=== PATIENT | male | born 1945 | race Caucasian/White ===

== ENCOUNTER → 2019-07-22 10:17 | Outpatient (CLI) | payer MEDICARE, SELFPAY ==
[2019-07-22 11:14] LABS: Cholesterol 196 mg/dL (140-199); HDL Cholesterol 52 mg/dL (40-60); LDL Cholesterol Calculated 123 mg/dL (<100); Triglycerides 104 mg/dL (35-150)
[2019-07-22 11:30] LABS: Vitamin D 25 Hydroxy (D3) 44.2 ng/mL (30.0-100.0)
== END ==
PROVIDERS: PCP Student in an Organized Health Care Education/Training Program; Visit Provider Student in an Organized Health Care Education/Training Program
DX: Z13.220 Encounter for screening for lipoid disorders (principal); E55.9 Vitamin D deficiency, unspecified
CPT/HCPCS: 36415; 80061; 82306

== ENCOUNTER → 2019-07-31 07:55 | Outpatient (CLI) | payer MEDICARE, SELFPAY ==
--- NOTE | 2019-07-31 07:58 | DI.US.S_ITS ---
PROCEDURE: US ABD AORTA ANEURYSM SCREEN INDICATIONS: AAA screen TECHNIQUE: Real time scanning was performed of the aorta and iliac arteries, with image documentation. COMPARISON: None. FINDINGS: Aorta: Proximal aortic diameter measures 3.0 cm. Mid-aorta measures 2.1 cm. Distal aortic diameter is 2.2 cm. Iliac arteries: Right common iliac artery measures 1.3 cm. Left common iliac artery measures 1.3 cm. IMPRESSION: Upper normal aorta is at the upper limits of normal, three-year followup is recommended to assess for stability in size over time. Dictated by: Robin Thomas M.D. on 07/31/2019 at 10:36 Approved by: Robin Thomas M.D. on 07/31/2019 at 10:47
== END ==
PROVIDERS: PCP Student in an Organized Health Care Education/Training Program; Visit Provider Student in an Organized Health Care Education/Training Program
DX: Z13.6 Encounter for screening for cardiovascular disorders (principal); Z87.891 Personal history of nicotine dependence
CPT/HCPCS: 76706

== ENCOUNTER → 2020-10-08 09:53 | Outpatient (CLI) | payer MEDICARE, SELFPAY ==
[2020-10-08] MEDS: COVID-19 VACC #1, MRNA(MOD) 100 MCG/0.5 ML VIAL IM (09:59)
== END ==
PROVIDERS: PCP Student in an Organized Health Care Education/Training Program; Visit Provider Internal Medicine
DX: Z23 Encounter for immunization (principal)
CPT/HCPCS: 0011A; 91301

== ENCOUNTER → 2020-11-05 10:02 | Outpatient (CLI) | payer MEDICARE, SELFPAY ==
[2020-11-05] MEDS: COVID-19 VACC #2, MRNA(MOD) 100 MCG/0.5 ML VIAL IM (10:04)
== END ==
PROVIDERS: PCP Student in an Organized Health Care Education/Training Program; Visit Provider Internal Medicine
DX: Z23 Encounter for immunization (principal)
CPT/HCPCS: 0012A; 91301

== ENCOUNTER → 2021-02-15 07:41 | Outpatient (CLI) | payer MEDICARE, SELFPAY ==
[2021-02-15 08:43] LABS: Add Manual Diff / Slide Review NO; Basophils Absolute Auto 0 /uL (0-100); Basophils Percent Auto 0.4 % (0-2); Eosinophils Absolute Auto 100 /uL (0-450); Eosinophils Percent Auto 1.8 % (2-4); Hematocrit 46.4 % (41-53); Hemoglobin 15.6 g/dL (13.5-17.5); Lymphocytes Absolute Auto 1100 /uL (1100-4500); Lymphocytes Percent Auto 16.4 % (25-40); Mean Corpuscular HGB Conc 33.7 % (30-36); Mean Corpuscular Hemoglobin 32.3 PG (26-34); Mean Corpuscular Volume 95.8 fL (80-100); Monocytes Absolute Auto 700 /uL (0-900); Monocytes Percent Auto 10.5 % (3-14); Neutrophils Absolute Auto 4900 /uL (1500-7000); Neutrophils Percent Auto 70.9 % (50-75); Platelet Count 265 X10^3/uL (150-400); Red Blood Cell Count 4.85 X10^6/uL (4.5-5.9); Red Cell Distribution Width 13.2 % (11.6-14.8); White Blood Cell Count 6.8 X10^3/uL (4.5-11.0)
[2021-02-15 09:06] LABS: Alanine Aminotransferase 19 IU/L (<50); Albumin Globulin Ratio 1.7 (1.0-2.8); Alkaline Phosphatase 75 U/L (38-126); Aspartate Aminotransferase 26 IU/L (17-59); BUN Creatinine Ratio 24.2 (6-22); Bilirubin Total 0.6 mg/dL (0.2-1.3); Blood Urea Nitrogen 23 mg/dL (9-20); Carbon Dioxide 24 mmol/L (22-32); Chloride 107 mmol/L (98-107); Estimated Glomerular Filt Rate > 60.0 mL/min (>60); Globulin 2.4 g/dL (1.7-4.1); Glucose 118 mg/dL (80-110); HEMOLYSIS < 15 (0-50); Potassium 4.7 mmol/L (3.4-5.1); Sodium 139 mmol/L (137-145); Total Protein 6.4 g/dL (6.3-8.2)
[2021-02-15 09:35] LABS: TSH w/ Reflex to FT4 2.97 uIU/mL (0.47-4.68)
[2021-02-15 09:55] LABS: Vitamin B12 665 pg/mL (239-931)
== END ==
PROVIDERS: PCP Student in an Organized Health Care Education/Training Program; Referring Provider Student in an Organized Health Care Education/Training Program; Visit Provider Student in an Organized Health Care Education/Training Program
DX: R53.83 Other fatigue (principal); I48.21 Permanent atrial fibrillation; I48.91 Unspecified atrial fibrillation
CPT/HCPCS: 36415; 80053; 82607; 84443; 85025

== ENCOUNTER → 2021-03-29 09:02 | Outpatient (CLI) | payer MEDICARE, SELFPAY ==
--- NOTE | 2021-03-29 | DI.ECHO.S_ITS ---
[facility] +---------+ [facility] +---------+ : : [address] [place] : : : : [id number] : : : : Phone: [phone]+ Echocardiogram Report + + :Name: GILBERTO SOTO Study Date: 03/29/2021 Height: 75 in : :[facility] ReadingLocation: Weight: 185 lb : : Gender: Male BSA: 2.1 m2 : :: 1945 Age: 75 yrs BP: 158/113 mmHg: :Reason For Study: ATRIAL FIBRILLATION : :Ordering Physician: RUPESH, : :FAIZAN Performed By: Jacqueline Benavides : :Referring: FAIZAN BEAUCHAMP : + + Interpretation Summary 1) Mildly enlarged left ventricular size with mildly-moderately reduced systolic function (EF 40-45%). 2) The right ventricle is mildly dilated with low normal function. 3) Severe left atrial enlargement. Moderate to severe right atrial enlargement. 4) There is mild to moderate mitral regurgitation. 5) Hypertension present during the study (BP 158/113mmHg). 6) No prior Echo available for comparison. Procedure: A two-dimensional transthoracic echocardiogram with color flow and Doppler was performed. The study quality was technically adequate. There is no prior echocardiogram noted for this patient. The patient was in atrial fibrillation with heart rates between 78-90 bpm during the exam. Left Ventricle: The estimated left ventricular end diastolic volume is 132 ml. The left ventricle is mild-moderately dilated. There is normal left ventricular wall thickness. The ejection fraction is estimated to be 40-45%. Diastolic function could not be accurately assessed due to atrial fibrillation. Right Ventricle: The right ventricle is mildly dilated. Right ventricular systolic function is at the lower limits of normal. Atria: The left atrium is severely dilated. The right atrium is moderate to severely dilated. There is no Doppler evidence for an interatrial shunt. Mitral Valve: The mitral valve leaflets appear borderline thickened, but open well. There is mild to moderate mitral regurgitation. Aortic Valve: The aortic valve is trileaflet. The aortic valve opens well. There is no aortic valve stenosis. No aortic regurgitation is present. Tricuspid Valve: The tricuspid valve is not well visualized, but is grossly normal. There is mild tricuspid regurgitation. The right ventricular systolic pressure is estimated to be at least 30 mmHg based on an estimated right atrial pressure of 3 mm Hg. Pulmonic Valve: The pulmonic valve leaflets are thin and pliable; valve motion is normal. There is trace pulmonic regurgitation. Great Vessels: The aortic root is normal size. The ascending aorta is normal in size. The IVC is of normal diameter and collapses greater than 50% with a sniff. This suggests a low right atrial pressure of 3 mm Hg. Pericardium/ Pleura There is no pericardial effusion. There is no pleural effusion. MMode/2D Measurements & Calculations LVIDd: 6.0 cm LVOT diam: 2.4 cm LVIDs: 4.7 cm Ao root diam: 3.6 cm FS: 22.4 % asc Aorta Diam: 3.4 cm IVSd: 1.1 cm Ao Arch Diam (Prox Trans): 3.3 cm LVPWd: 0.97 cm LV connor. diameter/BSA (cm/m^2): 2.8 LV sys. diameter/BSA (cm/m^2): 2.2 LA A2 area: 38.4 cm2 RA long axis: 6.5 cm LA A4 area: 37.3 cm2 RA area: 28.3 cm2 LA length (vol): 7.3 cm RA vol: 104.4 ml LA vol: 167.6 ml RA : 49.2 ml/m2 LA vol index: 78.9 ml/m2 IVC diam: 1.5 cm RVD1 (basal): 4.3 cm TAPSE: 2.0 cm Doppler Measurements & Calculations Ao V2 max: 80.7 cm/sec LVOT Max Curry: 50.2 cm/sec Ao V2 mean: 59.8 cm/sec LV V1 max P.0 mmHg Ao max P.6 mmHg LV V1 VTI: 8.3 cm Ao mean P.6 mmHg KEL(I,D): 2.7 cm2 Ao V2 VTI: 14.1 cm KEL(V,D): 2.9 cm2 sev ratio: 0.59 KEL indexed to BSA (cm^2/m^2): 1.3 MV E max curry: 70.2 cm/sec TR max curry: 258.7 cm/sec MV A max curry: 2.0 cm/sec TR max P.8 mmHg MV E/A: 35.1 PA V2 max: 77.1 cm/sec Med Peak E' Curry: 5.5 cm/sec PA V2 mean: 50.4 cm/sec E/E' med: 12.9 PA mean P.2 mmHg Lat Peak E' Curry: 8.2 cm/sec PA pr(Accel): 43.0 mmHg E/E' lat: 8.5 E/e' average: 10.7 MV dec time: 0.17 sec SV(LVOT): 38.6 ml Reading Physician:03:19 PM
== END ==
PROVIDERS: PCP Student in an Organized Health Care Education/Training Program; Referring Provider Internal Medicine Cardiovascular Disease; Visit Provider Internal Medicine Cardiovascular Disease
DX: I48.19 Other persistent atrial fibrillation (principal); I08.1 Rheumatic disorders of both mitral and tricuspid valves
CPT/HCPCS: 93306

== ENCOUNTER → 2021-07-27 13:38 | Outpatient (CLI) | payer MEDICARE, SELFPAY ==
--- NOTE | 2021-07-27 13:41 | DI.ECHO.S_ITS ---
[facility] +---------+ Hospital +---------+ : : [address] [place] : : : : [id number] : : : : Phone: [phone]+ Echocardiogram Report + + :Name: GILBERTO SOTO Study Date: 07/27/2021 Height: 75 in : :[facility] ReadingLocation: Weight: 185 lb : : Gender: Male BSA: 2.1 m2 : :: 1945 Age: 75 yrs BP: 166/82 mmHg: :Reason For Study: CARDIOMYOPATHY : :Ordering Physician: RUPESH, : :FAIZAN Performed By: Jacqueline Benavides : :Referring: FAIZAN BEAUCHAMP : + + Interpretation Summary 1) Mildly enlarged left ventricle with normal wall motion and normal systolic function (EF 55-60%). 2) Borderline enlarged right ventricle with normal function. 3) Severe left atrial enlargement present. 4) No significant valvular abnormalities. 5) Hypertension present during the study (BP 166/82mmHg). 6) Compared to the Echo done , LVEF has increased from 40-45% to 55-60% on this study. Procedure: A two-dimensional transthoracic echocardiogram with color flow and Doppler was performed. The study quality was technically adequate. Comparison is made with the echocardiogram of 03/29/2021. The patient was in sinus bradycardia with heart rates between 40-45 bpm during the exam. Left Ventricle: There is normal left ventricular wall thickness. The estimated left ventricular end diastolic volume is 156 ml. The left ventricle is mildly dilated. The ejection fraction is estimated to be 55-60%. Left ventricular systolic function appears normal without focal wall motion abnormalities. Right Ventricle: The right ventricle is borderline dilated. The right ventricular systolic function is normal. Atria: The left atrium is severely dilated. The right atrium is moderately dilated. There is no Doppler evidence for an interatrial shunt. Mitral Valve: The mitral valve is normal in structure and function. There is trace mitral regurgitation. Aortic Valve: The aortic valve is trileaflet. The aortic valve opens well. There is no aortic valve stenosis. No aortic regurgitation is present. Tricuspid Valve: The tricuspid valve is normal in structure and function. There is a trace or physiologic amount of tricuspid regurgitation. Pulmonary artery pressures cannot be estimated because of the lack of a measurable TR jet velocity. Pulmonic Valve: The pulmonic valve leaflets are thin and pliable; valve motion is normal. There is no pulmonic valvular regurgitation. Great Vessels: The aortic root is normal size. The ascending aorta is normal in size. The IVC is of normal diameter and collapses greater than 50% with a sniff. This suggests a low right atrial pressure of 3 mm Hg. Pericardium/ Pleura There is no pericardial effusion. There is no pleural effusion. MMode/2D Measurements & Calculations LVIDd: 6.2 cm LVOT diam: 2.4 cm LVIDs: 4.1 cm Ao root diam: 3.6 cm FS: 34.1 % asc Aorta Diam: 3.5 cm IVSd: 0.94 cm Ao Arch Diam (Prox Trans): 2.9 cm LVPWd: 0.97 cm LV connor. diameter/BSA (cm/m^2): 2.9 LV sys. diameter/BSA (cm/m^2): 1.9 LA A2 area: 40.2 cm2 RA long axis: 6.9 cm LA A4 area: 34.2 cm2 RA area: 28.2 cm2 LA length (vol): 7.6 cm RA vol: 97.2 ml LA vol: 153.3 ml RA : 45.8 ml/m2 LA vol index: 72.2 ml/m2 IVC diam: 0.85 cm RVD1 (basal): 4.0 cm TAPSE: 2.1 cm Doppler Measurements & Calculations Ao V2 max: 155.8 cm/sec LVOT Max Curry: 124.9 cm/sec Ao V2 mean: 106.1 cm/sec LV V1 max P.2 mmHg Ao max P.7 mmHg LV V1 VTI: 27.7 cm Ao mean P.1 mmHg KEL(I,D): 3.6 cm2 Ao V2 VTI: 34.7 cm KEL(V,D): 3.7 cm2 sev ratio: 0.80 KEL indexed to BSA (cm^2/m^2): 1.7 MV E max curry: 54.6 cm/sec PA V2 max: 127.6 cm/sec MV A max curry: 73.9 cm/sec PA V2 mean: 93.3 cm/sec MV E/A: 0.74 PA mean P.9 mmHg Med Peak E' Curry: 5.1 cm/sec PA pr(Accel): 24.2 mmHg E/E' med: 10.7 Lat Peak E' Curry: 6.0 cm/sec E/E' lat: 9.0 E/e' average: 9.8 MV dec time: 0.49 sec SV(LVOT): 126.7 ml Reading Physician:10:17 PM
== END ==
PROVIDERS: PCP Student in an Organized Health Care Education/Training Program; Referring Provider Internal Medicine Cardiovascular Disease; Visit Provider Internal Medicine Cardiovascular Disease
DX: I42.9 Cardiomyopathy, unspecified (principal)
CPT/HCPCS: 93306

== ENCOUNTER → 2021-07-29 12:37 | Outpatient (CLI) | payer MEDICARE, SELFPAY ==
[2021-07-29] MEDS: COVID-19 VACC #3, MRNA(MOD) 50 MCG/0.25 ML VIAL IM (12:42)
== END ==
PROVIDERS: PCP Student in an Organized Health Care Education/Training Program; Visit Provider Internal Medicine
DX: Z23 Encounter for immunization (principal)
CPT/HCPCS: 0013A; 91301

== ENCOUNTER → 2021-08-08 08:42 | Outpatient (CLI) | payer MEDICARE, SELFPAY ==
[2021-08-08 10:07] LABS: Add Manual Diff / Slide Review NO; Basophils Absolute Auto 0 /uL (0-100); Basophils Percent Auto 0.3 % (0-2); Eosinophils Absolute Auto 100 /uL (0-450); Eosinophils Percent Auto 1.6 % (2-4); Hematocrit 42.9 % (41-53); Hemoglobin 14.5 g/dL (13.5-17.5); Lymphocytes Absolute Auto 1000 /uL (1100-4500); Lymphocytes Percent Auto 16.7 % (25-40); Mean Corpuscular HGB Conc 33.8 % (30-36); Mean Corpuscular Hemoglobin 32.2 PG (26-34); Mean Corpuscular Volume 95.1 fL (80-100); Monocytes Absolute Auto 600 /uL (0-900); Monocytes Percent Auto 10.2 % (3-14); Neutrophils Absolute Auto 4100 /uL (1500-7000); Neutrophils Percent Auto 71.2 % (50-75); Platelet Count 257 X10^3/uL (150-400); Red Cell Distribution Width 13.9 % (11.6-14.8); White Blood Cell Count 5.7 X10^3/uL (4.5-11.0)
[2021-08-08 10:29] LABS: BUN Creatinine Ratio 26.7 (6-22); Blood Urea Nitrogen 23 mg/dL (9-20); Calcium 9.8 mg/dL (8.4-10.2); Carbon Dioxide 29 mmol/L (22-32); Chloride 104 mmol/L (98-107); Cholesterol 198 mg/dL (140-199); Estimated Glomerular Filt Rate > 60.0 mL/min (>60); Glucose 117 mg/dL (80-110); HDL Cholesterol 51 mg/dL (40-60); HEMOLYSIS < 15 (0-50); LDL Cholesterol Calculated 122 mg/dL (<100); Potassium 4.2 mmol/L (3.4-5.1); Sodium 141 mmol/L (137-145); Triglycerides 123 mg/dL (35-150)
== END ==
PROVIDERS: PCP Student in an Organized Health Care Education/Training Program; Referring Provider Internal Medicine Cardiovascular Disease; Visit Provider Internal Medicine Cardiovascular Disease
DX: I10 Essential (primary) hypertension (principal); Z79.01 Long term (current) use of anticoagulants
CPT/HCPCS: 36415; 80048; 80061; 85025

== ENCOUNTER → 2022-05-24 07:24 | Outpatient (CLI) | payer MEDICARE, SELFPAY ==
[2022-05-24 07:57] LABS: COVID19 -Nasal RAPID Negative (Negative)
--- NOTE | 2022-05-24 18:30 | DI.NM.S_ITS ---
DATE OF SERVICE: 05/24/2022 PROCEDURE: Exercise stress test. INDICATION: Atrial fibrillation. CARDIAC STRESS: The patient underwent exercise stress test under the supervision of an attending staff. The patient walked on Federico protocol for 6 minutes and 19 seconds, achieved maximum heart rate of 133, which was 91 percent of target heart rate. Baseline blood pressure 118/78 mmHg. Peak blood pressure 150/80 mmHg. She achieved 7 METs of workload. BRADLEY -3 percent. Baseline rhythm was sinus. The patient has frequent PVCs. During stress, worsening PVCs, including ventricular bigeminy, ventricular couplets, as well as short run of nonsustained ventricular tachycardia. The patient was symptomatic with palpitation during nonsustained ventricular tachycardia. Artifact seen affecting the quality of interpretation for ischemia. In recovery, the patient continues to have PVCs in isolation, as well as bigeminy and trigeminy pattern. The patient also had idioventricular rhythm. No chest discomfort. Had moderate shortness of breath. CONCLUSION: Exercise stress test is inconclusive to rule out ischemia. Fair exercise tolerance. Normal hemodynamic response. Baseline rhythm sinus with frequent PVCs, which got worse during exercise. Mostly monomorphic, but polymorphic premature ventricular contractions seen, as well. Frequent ventricular couplets, nonsustained ventricular tachycardia during exercise. Idioventricular rhythm during recovery. The patient was symptomatic with palpitation during NSVT. This is an abnormal exercise stress test. Correlate clinically. Arvin Babcock - RACHAEL/yadira/norman doc#: [id number]/job#: [id number] dd: 05/24/2022 17:16:00 dt: 05/24/2022 17:35:00 DICTATING /COPIES TO: Isaac Fenton MD COPIES MNE: JANEY;
== END ==
PROVIDERS: PCP Student in an Organized Health Care Education/Training Program; Referring Provider Internal Medicine Cardiovascular Disease; Visit Provider Internal Medicine Cardiovascular Disease
DX: I42.9 Cardiomyopathy, unspecified (principal); I10 Essential (primary) hypertension; I48.19 Other persistent atrial fibrillation; R53.83 Other fatigue; Z20.822 Contact with and (suspected) exposure to COVID-19; I49.3 Ventricular premature depolarization; I47.1 Supraventricular tachycardia; R00.2 Palpitations
CPT/HCPCS: 87635; 93017

== ENCOUNTER → 2022-06-28 13:34 | Outpatient (CLI) | payer MEDICARE, SELFPAY ==
--- NOTE | 2022-06-28 13:37 | DI.US.S_ITS ---
PROCEDURE: US ABDOMEN LIMITED INDICATIONS: EPIGASTRIC PAIN. ALSO EVALUATE AORTA FOR NICOTINE DEPENDENCE TECHNIQUE: Real-time focused scanning was performed of the abdomen, with image documentation. COMPARISON: [facility], US, US ABD AORTA ANEURYSM SCREEN, 07/31/2019, 8:07. FINDINGS: Normal appearance of liver. No gallstones identified. Normal gallbladder wall. No pericholecystic fluid. Negative sonographic Singh sign. Common bile duct measures 8.6 mm. Normal pancreas. The proximal aorta measures up to 3.0 cm. IMPRESSION: 1. Mild prominence of the extrahepatic bile duct measuring up to 8.6 mm. Recommend correlation with LFTs. 2. 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 3 year follow-up ultrasound is recommended. Dictated by: Javi Martinez [facility] Interpreted: Minor Alcazar MD on 06/28/2022 at 16:54 Transcribed by: CUATE on 06/28/2022 at 16:55 Approved by: Minor Alcazar M.D. on 06/29/2022 at 9:37
--- NOTE | 2022-06-28 13:37 | DI.CT.S_ITS ---
PROCEDURE: CT CHEST WO CON INDICATIONS: Epigastric pain;History of nicotine dependence TECHNIQUE: Noncontrast 2.0-2.5 mm thick sections acquired from the pulmonary apices to the posterior costophrenic angles. 7 mm thick axial MIP, and 5 mm coronal and sagittal reformats were then acquired. A low radiation dose technique was utilized. COMPARISON: [facility], , ABDOMEN LIMITED, 06/28/2022, 13:58. FINDINGS: Image quality: Diagnostic, given the low radiation dose technique. Lungs and pleura: There is a 3 mm nodule in the right major fissure (series 3, image 191). A 2 mm calcified nodule is noted in the right upper lobe. Mild emphysema. Mediastinum: Heart size is normal. Moderate coronary artery calcifications. No pericardial effusion. No mediastinal adenopathy by size criteria. Thoracic aorta and central pulmonary arteries are normal in size. Esophagus is normal in caliber. No hiatal hernia. Bones and chest wall: No suspicious bony lesions. No vertebral body compression fractures. No axillary or supraclavicular adenopathy by size criteria. Thyroid gland is normal. Mild gynecomastia. Abdomen: Visualized upper abdomen solid organs and bowel loops appear normal in the absence of contrast. IMPRESSION: 1. Small 3 mm nodule in the right major fissure. LUNG-RADS 2; recommend annual screening lung CT in 12 months. 2. Moderate coronary artery atherosclerosis. Dictated by: Tika Johnson M.D. on 06/28/2022 at 17:49 Approved by: Tika Johnson M.D. on 06/28/2022 at 17:54
== END ==
PROVIDERS: PCP Student in an Organized Health Care Education/Training Program; Referring Provider Student in an Organized Health Care Education/Training Program; Visit Provider Student in an Organized Health Care Education/Training Program
DX: I71.40 Abdominal aortic aneurysm, without rupture, unspecified (principal); R91.8 Other nonspecific abnormal finding of lung field; J43.9 Emphysema, unspecified; R10.13 Epigastric pain; I25.10 Atherosclerotic heart disease of native coronary artery without angina pectoris; Z87.891 Personal history of nicotine dependence
CPT/HCPCS: 71250; 76705

== ENCOUNTER → 2022-07-07 10:34 | Outpatient (CLI) | payer MEDICARE, SELFPAY ==
[2022-07-07 14:27] LABS: COVID19 -Nasal RAPID Negative (Negative)
--- NOTE | 2022-07-07 20:58 | DI.NM.S_ITS ---
DATE OF SERVICE: 07/07/2022 PROCEDURE: Exercise perfusion study. INDICATION: Paroxysmal AFib with likely tachycardia-induced cardiomyopathy with underlying hypertension. Exercise perfusion study being scheduled to consider class 1C antiarrhythmic therapy, if there is no obvious ischemia or infarction. RADIOPHARMACEUTICAL: 25.9 millicurie technetium-99m Myoview IV was injected at stress and 11.6 millicurie technetium-99m Myoview IV was injected at rest. CARDIAC STRESS: The patient underwent exercise perfusion study under the supervision of an attending staff. He walked on Federico protocol for 6 minutes and 13 seconds, achieved 91 percent of target heart rate. Baseline blood pressure 132/88 and peak blood pressure 166/88. BRADLEY 0 percent. Achieved 7 METs of workload. Baseline rhythm was sinus with frequent premature ventricular contractions, including bigeminy pattern. During exercise, patient continued to have premature ventricular contractions and in recovery, it got more intense, as well as some ventricular couplets and 3-4 beats run of idioventricular rhythm. No sustained ventricular tachycardia. There was nonspecific up to [address] depression in inferolateral leads during stress. The patient has some baseline nonspecific ST-T changes as well. No chest pain. Had moderate shortness of breath. RAW DATA: There is increased subdiaphragmatic activity. The patient's weight is 185 pounds. GATED STUDY: Resting LV ejection fraction 55 and stress LV ejection fraction 66 without any obvious wall motion abnormalities. Left ventricle appears to be dilated. Resting end-diastolic volume 181 mL. No transient ischemic dilatation. TID ratio 0.89, which is within normal limits. Lung/heart ratio 0.38, which is within normal limits. MYOCARDIAL PERFUSION SCAN: Stress supine, resting supine and stress prone images were compared to each other. Stress supine and resting supine images revealed a small to moderate size, mildly decreased perfusion of inferior wall and inferoapex, which got significantly improved during stress prone images. Inferior wall defect got improved. The patient remained having mildly decreased perfusion of inferoapex during the stress prone images. No reversible ischemia. CONCLUSION: I will call this study likely a normal myocardial perfusion study with evidence of diaphragmatic attenuation artifact, which got significantly improved during stress prone images, however stress prone images remained to have mildly decreased perfusion of inferoapex. Inferior wall has significantly improved. Likely, there is a some component of persistent tissue attenuation artifact. Overall left ventricular function is preserved. However, left ventricle appears to be dilated. No transient ischemic dilatation. Lung/heart ratio is within normal limits. Functional aerobic impairment is 0 percent. The patient walked on Federico protocol for 6 minutes and 30 seconds. Frequent baseline premature ventricular contractions, including bigeminy pattern, which persisted during exercise, as well as in recovery, and some ventricular couplets and nonsustained idioventricular rhythm. No sustained ventricular tachycardia seen. As far as perfusion scan is concerned, this is a low-risk myocardial perfusion scan. Arvin Babcock - RACHAEL/yadira/lc doc#: [id number]/job#: [id number] dd: 07/07/2022 17:49:00 dt: 07/07/2022 20:46:00 DICTATING /COPIES TO: Isaac Fenton MD COPIES MNE: JANEY;
== END ==
PROVIDERS: PCP Student in an Organized Health Care Education/Training Program; Referring Provider Internal Medicine Cardiovascular Disease; Visit Provider Internal Medicine Cardiovascular Disease
DX: I42.9 Cardiomyopathy, unspecified (principal); I47.20 Ventricular tachycardia, unspecified; I48.0 Paroxysmal atrial fibrillation; I10 Essential (primary) hypertension; Z20.822 Contact with and (suspected) exposure to COVID-19
CPT/HCPCS: 78452; 87635; 93017; A9502

== ENCOUNTER → 2022-08-30 09:24 | Outpatient (CLI) | payer MEDICARE, SELFPAY ==
[2022-08-30 11:42] LABS: COVID19 -Nasal RAPID Negative (Negative)
== END ==
PROVIDERS: PCP Student in an Organized Health Care Education/Training Program; Visit Provider Surgery
DX: Z01.812 Encounter for preprocedural laboratory examination (principal); Z20.822 Contact with and (suspected) exposure to COVID-19
CPT/HCPCS: 87635; C9803

== ENCOUNTER 2022-08-31 11:14 | Day surgery (SDC) | payer MEDICARE, SELFPAY ==
--- NOTE | 2022-08-31 | PATH_ITS ---
[facility] Accession Number: [id number] No. of containers..02 Tissue . 01 Material submitted: . PART A: cecum - CECAL POLYP PART B: sigmoid colon - SIGMOID POLYP . 01 Diagnosis: A. Cecal Polyp, Biopsy: Tubular adenoma. . B. Sigmoid Colon Polyp, Biopsy: Hyperplastic polyp. MRV 09/06/2022 1316 Local . 01 Electronically signed: . Tierney Tejada MD, Pathologist NPI- [id number] . 01 Gross description: . Part A: CECAL POLYP: Received in formalin are 4 fragment(s) of almeida, soft tissue measuring 0.1 x 0.1 x 0.1 cm to 0.5 x 0.5 x 0.3 cm submitted entirely in 1 cassette(s) Part B: SIGMOID POLYP: Received in formalin are 2 fragment(s) of almeida, soft tissue measuring 0.2 x 0.2 x 0.1 cm to 0.3 x 0.2 x 0.2 cm submitted entirely in 1 cassette(s) /ENRIQUE 09/04/2022 2224 Local . 01 Pathologist provided ICD-10: D12.0, D12.5 . 01 CPT . 415821, 244205 Specimen Comment: A courtesy copy of this report has been sent to [phone] Performed at: 01 [facility] [address] [place] [address], [place], [place] [id number] MD Julio Hatch MD Phone: [phone]
[2022-08-31 12:13] VITALS: BP 149/79; PULSE 50; RESP 17; TEMP 36.4; O2SAT 100; BMI 23.1
[2022-08-31] MEDS: LACTATED RINGERS 1,000 ML 42 ML IV (12:35)
--- NOTE | 2022-08-31 14:04 | PM.HP.1 ---
History of Present Illness History of Present Illness Date Patient Seen: 08/31/22 Time Patient Seen: 14:04 Chief complaint: SCREENING COLONOSCOPY Narrative: Arvin is a 76-year-old man who is here for colonoscopy. He has had 3 total. He believes he had polyps removed the first time but not the second or third time. He has no known family history of colon cancer. A takes Xarelto for atrial fibrillation but he has held it for the past few days. Patient History Medical History (Updated 08/31/22 @ 14:05 by Jean Andrews MD) Alopecia (~2009) Chicken pox Chronic back pain Colon polyps Measles Mumps Scoliosis Tinnitus Surgical History (Updated 07/17/19 @ 21:23 by Zoë Upton) Anesthesia History of knee surgery (~2013) Family & Social History Family History (Updated 07/17/19 @ 21:24 by Zoë Upton) Father Leukemia Mother Kidney failure Social History: household members spouse Tobacco & Substance use: Smoking Status Former smoker alcohol intake current alcohol intake frequency 0-2 drinks per day Substance Use Type does not use Meds Home Medications and Allergies Home Medications Medication Instructions Recorded Confirmed Type metoprolol succinate 25 mg 12.5 mg PO DAILY 06/23/21 08/31/22 History tablet,extended release 24 hr amlodipine 10 mg tablet 10 mg PO DAILY 08/23/21 08/31/22 History flecainide 100 mg tablet 100 mg PO Q12H PRN Abnormal rhythm 06/20/22 08/31/22 History losartan 50 mg tablet 50 mg PO DAILY 06/20/22 08/31/22 History rivaroxaban 20 mg tablet (Xarelto) 20 mg PO DAILY 06/20/22 08/31/22 History sodium sul 1.479 gram-potas ch See Rx Instructions PO PER PKG DIR 07/19/22 08/31/22 Rx 0.188 gram-magnes sul 0.225 gram #24 tabs tablet (Sutab) Allergies Allergy/AdvReac Type Severity Reaction Status Date / Time No Known Drug Allergies Allergy Verified 08/31/22 12:33 Exam Vital Signs (past 8 hours): - 08/31/22 12:13 Temperature 97.6 F Pulse Rate 50 L Respiratory Rate 17 Blood Pressure 149/79 H Pulse Oximetry 100 Oxygen Delivery Method Room Air Oxygen Delivery Method Room Air Const General: healthy appearing Assessment & Plan Assessment and plan (1) Colon cancer screening: Status: Acute Plan We reviewed the risks and benefits of colonoscopy for colon cancer screening and he would like to proceed. Time Spent With Patient Critical Care time: I spent a total of [] minutes of critical care time on this patient's care today; this time is exclusive of procedural time.
--- NOTE | 2022-08-31 14:44 | PM.OP.COLON ---
Operative Date/Time/Diagnoses Date of procedure: 08/31/22 Time of procedure: 14:45 Pre-op diagnosis: Colon cancer screening Post-op diagnosis: same Procedure & Clinicians Study performed: Colonoscopies Same procedure as scheduled: Yes Surgeon: Jean Andrews Procedure Notes Procedure in detail: Surgeon: Jean Andrews MD Anesthesia: Jaz Garcia CRNA Procedure: The patient was brought to the endoscopy suite, placed in left lateral decubitus position. The patient was connected to monitoring devices. A time-out was performed. Sedation was administered. Once the patient was adequately sedated, a digital rectal exam was performed and was normal. The scope was then inserted and advanced to the cecum where the appendiceal orifice was identified and photographed. The scope was then slowly withdrawn over greater than 6 minutes. The mucosa was thoroughly inspected. There was a 5 mm polyp in the cecum removed with a cold snare. There was a 5 mm polyp in the sigmoid colon removed with a cold snare. The scope was retroflexed in the rectum. There were some mild internal hemorrhoids but no other abnormalities. The scope was straightened and removed. The patient was awakened and brought to recovery. Scope withdrawal time: 20 minutes Sedation time: 32 minutes EBL: 5 mL Findings: 5 mm polyp in the sigmoid colon and 5 mm polyp in the cecum
[2022-08-31 14:46] VITALS: BP 139/76; PULSE 46; RESP 18; TEMP 36.6; O2SAT 96
[2022-08-31 14:53] VITALS: BP 149/76; PULSE 45; RESP 16; O2SAT 98
[2022-08-31 14:56] VITALS: BP 148/79; PULSE 43; RESP 14; O2SAT 98
[2022-08-31 15:09] VITALS: BP 148/79; PULSE 45; RESP 16; TEMP 36.6; O2SAT 98
== END 2022-08-31 15:27 | disposition home or self-care (01) ==
PROVIDERS: PCP Student in an Organized Health Care Education/Training Program; Referring Provider Surgery; Visit Provider Surgery
PROC: 0DJD8ZZ Inspection of Lower Intestinal Tract, Via Natural or Artificial Opening Endoscopic (ICD-10-PCS; CPT 45378; principal; 2022-08-31 12:30)
DX: Z12.11 Encounter for screening for malignant neoplasm of colon (principal); D12.0 Benign neoplasm of cecum
CPT/HCPCS: 45385; J2704

== ENCOUNTER → 2022-09-27 07:29 | Outpatient (CLI) | payer MEDICARE, SELFPAY ==
[2022-09-27 09:15] LABS: Add Manual Diff / Slide Review NO; Basophils Absolute Auto 0 /uL (0-100); Basophils Percent Auto 0.4 % (0-2); Eosinophils Absolute Auto 100 /uL (0-450); Eosinophils Percent Auto 1.6 % (2-4); Hematocrit 43.9 % (41-53); Hemoglobin 14.6 g/dL (13.5-17.5); Lymphocytes Absolute Auto 1400 /uL (1100-4500); Lymphocytes Percent Auto 22.7 % (25-40); Mean Corpuscular HGB Conc 33.1 % (30-36); Mean Corpuscular Hemoglobin 31.3 PG (26-34); Mean Corpuscular Volume 94.4 fL (80-100); Monocytes Absolute Auto 800 /uL (0-900); Monocytes Percent Auto 13.3 % (3-14); Neutrophils Absolute Auto 3700 /uL (1500-7000); Platelet Count 257 X10^3/uL (150-400); Red Blood Cell Count 4.65 X10^6/uL (4.5-5.9); Red Cell Distribution Width 13.7 % (11.6-14.8)
[2022-09-27 09:48] LABS: Blood Urea Nitrogen 20 mg/dL (9-20); Calcium 9.5 mg/dL (8.4-10.2); Carbon Dioxide 26 mmol/L (22-32); Chloride 105 mmol/L (98-107); Cholesterol 199 mg/dL (140-199); Estimated Glomerular Filt Rate > 60 mL/min (>60); Glucose 102 mg/dL (80-110); HDL Cholesterol 49 mg/dL (40-60); HEMOLYSIS < 15 (0-50); LDL Cholesterol Calculated 132 mg/dL (<100); Sodium 141 mmol/L (137-145); Triglycerides 90 mg/dL (35-150)
== END ==
PROVIDERS: PCP Student in an Organized Health Care Education/Training Program; Referring Provider Internal Medicine Cardiovascular Disease; Visit Provider Internal Medicine Cardiovascular Disease
DX: I10 Essential (primary) hypertension (principal); Z79.01 Long term (current) use of anticoagulants
CPT/HCPCS: 36415; 80048; 80061; 85025

== ENCOUNTER → 2022-10-20 10:03 | Outpatient (CLI) | payer MEDICARE, SELFPAY ==
[2022-10-20 12:20] LABS: Thyroid Stimulating Hormone 2.08 uIU/mL (0.47-4.68)
== END ==
PROVIDERS: PCP Student in an Organized Health Care Education/Training Program; Referring Provider Internal Medicine Cardiovascular Disease; Visit Provider Internal Medicine Cardiovascular Disease
DX: I48.0 Paroxysmal atrial fibrillation (principal)
CPT/HCPCS: 36415; 84443

== ENCOUNTER → 2023-07-04 12:19 | Outpatient (CLI) | payer MEDICARE, SELFPAY ==
--- NOTE | 2023-07-04 12:21 | DI.ECHO.S_ITS ---
[place] [facility] +---------+ : : [address] [place] : : : : [id number] : : : : Phone: [phone]+ Echocardiogram Report + + :Name: GILBERTO SOTO Study Date: 07/04/2023 Height: 75 in : :[facility] ReadingLocation: Weight: 190 lb : : Gender: Male BSA: 2.1 m2 : :: 1945 Age: 77 yrs BP: 156/75 mmHg: :Reason For Study: Atrial Fibrillation : :Ordering Physician: BRAULIO HORN Performed By: Dana Loco : :Referring: BRAULIO HORN : + + Interpretation Summary 1) Mildly enlarged left ventricle with low normal systolic function (EF 50- 55%). 2) Mildly enlarged right ventricle with normal function. 3) There is mild to moderate mitral regurgitation. 6) Compared to the Echo done 07/27/2021, mild-moderate mitral regurgitation is present on this study. Procedure: A two-dimensional transthoracic echocardiogram with color flow and Doppler was performed. The study quality was technically adequate. Comparison is made with the echocardiogram of 07/27/2021. Left Ventricle: The left ventricle is mildly dilated. The ejection fraction is estimated to be 50-55%. There are no focal wall motion abnormalities. Diastolic parameters suggest a relaxation abnormality of the left ventricle, consistent with probable normal filling pressures. Right Ventricle: The right ventricle is mildly dilated. The right ventricular systolic function is normal. Atria: The left atrium is moderately dilated. The right atrium is mildly dilated. There is no Doppler evidence for an interatrial shunt. Mitral Valve: The mitral valve is not well visualized. There is no mitral valve stenosis. There is mild to moderate mitral regurgitation. Aortic Valve: The aortic valve is trileaflet. There is mild aortic valve sclerosis. There is no aortic valve stenosis. No aortic regurgitation is present. Tricuspid Valve: The tricuspid valve is normal. There is no tricuspid stenosis. There is mild tricuspid regurgitation. The right ventricular systolic pressure is estimated to be at least 29 mmHg based on an estimated right atrial pressure of 3 mm Hg. Pulmonic Valve: The pulmonic valve leaflets are thin and pliable; valve motion is normal. There is no pulmonic valvular stenosis. There is trace pulmonic regurgitation. Great Vessels: The aortic root is normal size. The ascending aorta is at the upper limits of normal in size. The pulmonary artery is normal size. The IVC is of normal diameter and collapses greater than 50% with a sniff. This suggests a low right atrial pressure of 3 mm Hg. Pericardium/ Pleura There is no pericardial effusion. There is no pleural effusion. MMode/2D Measurements & Calculations LVIDd: 6.2 cm LVOT diam: 2.4 cm LVIDs: 5.2 cm Ao root diam: 3.6 cm FS: 15.2 % asc Aorta Diam: 3.6 cm EPSS: 0.81 cm IVSd: 0.94 cm LVPWd: 0.75 cm LV connor. diameter/BSA (cm/m^2): 2.9 LV sys. diameter/BSA (cm/m^2): 2.4 LA A2 area: 31.4 cm2 RA long axis: 5.8 cm LA A4 area: 23.1 cm2 RA area: 19.6 cm2 LA length (vol): 5.9 cm RA vol: 55.6 ml LA vol: 104.4 ml RA : 25.9 ml/m2 LA vol index: 48.6 ml/m2 IVC diam: 1.6 cm RVD1 (basal): 4.7 cm TAPSE: 3.3 cm Doppler Measurements & Calculations Ao V2 max: 129.9 cm/sec LVOT Max Curry: 106.1 cm/sec Ao V2 mean: 85.8 cm/sec LV V1 max P.5 mmHg Ao max P.7 mmHg LV V1 VTI: 19.3 cm Ao mean P.3 mmHg KEL(I,D): 3.6 cm2 Ao V2 VTI: 24.2 cm KEL(V,D): 3.7 cm2 sev ratio: 0.80 KEL indexed to BSA (cm^2/m^2): 1.7 MV E max curry: 80.0 cm/sec TR max curry: 257.1 cm/sec MV A max curry: 22.7 cm/sec TR max P.4 mmHg MV E/A: 3.5 Med Peak E' Curry: 8.0 cm/sec E/E' med: 10.0 Lat Peak E' Curry: 10.5 cm/sec E/E' lat: 7.6 E/e' average: 8.8 MV dec time: 0.32 sec SV(LVOT): 86.5 ml Reading Physician:05:31 PM
== END ==
PROVIDERS: PCP Family Medicine; Referring Provider Internal Medicine Cardiovascular Disease; Visit Provider Internal Medicine Cardiovascular Disease
DX: I08.3 Combined rheumatic disorders of mitral, aortic and tricuspid valves (principal); I48.0 Paroxysmal atrial fibrillation
CPT/HCPCS: 93306

== ENCOUNTER → 2023-07-06 11:23 | Outpatient (CLI) | payer MEDICARE, SELFPAY ==
[2023-07-06 12:04] LABS: Add Manual Diff / Slide Review NO; Basophils Absolute Auto 0 /uL (0-100); Basophils Percent Auto 0.3 % (0-2); Eosinophils Absolute Auto 0 /uL (0-450); Eosinophils Percent Auto 0.7 % (2-4); Hematocrit 43.5 % (41-53); Lymphocytes Absolute Auto 1200 /uL (1100-4500); Lymphocytes Percent Auto 17.8 % (25-40); Mean Corpuscular HGB Conc 34.4 % (30-36); Mean Corpuscular Hemoglobin 32.4 PG (26-34); Mean Corpuscular Volume 94.4 fL (80-100); Monocytes Absolute Auto 800 /uL (0-900); Monocytes Percent Auto 11.6 % (3-14); Neutrophils Absolute Auto 4800 /uL (1500-7000); Neutrophils Percent Auto 69.6 % (50-75); Platelet Count 268 X10^3/uL (150-400); Red Blood Cell Count 4.61 X10^6/uL (4.5-5.9); Red Cell Distribution Width 13.6 % (11.6-14.8); White Blood Cell Count 6.9 X10^3/uL (4.5-11.0)
[2023-07-06 12:14] LABS: Prothrombin Time 23.1 SECONDS (10.1-12.7)
[2023-07-06 12:25] LABS: Alanine Aminotransferase 24 IU/L (<50); Albumin 4.5 g/dL (3.5-5.0); Albumin Globulin Ratio 1.7 (1.0-2.8); Alkaline Phosphatase 70 U/L (38-126); Aspartate Aminotransferase 27 IU/L (17-59); BUN Creatinine Ratio 26.9 (6-22); Bilirubin Total 0.8 mg/dL (0.2-1.3); Blood Urea Nitrogen 21 mg/dL (9-20); Calcium 9.8 mg/dL (8.4-10.2); Carbon Dioxide 24 mmol/L (22-32); Chloride 104 mmol/L (98-107); Estimated Glomerular Filt Rate > 60 mL/min (>60); Globulin 2.7 g/dL (1.7-4.1); Glucose 123 mg/dL (80-110); HEMOLYSIS < 15 (0-50); Potassium 4.2 mmol/L (3.4-5.1); Sodium 137 mmol/L (137-145); Total Protein 7.2 g/dL (6.3-8.2)
[2023-07-06 16:19] LABS: Thyroid Stimulating Hormone 1.33 uIU/mL (0.47-4.68)
== END ==
PROVIDERS: PCP Family Medicine; Referring Provider Internal Medicine Cardiovascular Disease; Visit Provider Internal Medicine Cardiovascular Disease
DX: I48.19 Other persistent atrial fibrillation (principal); I48.0 Paroxysmal atrial fibrillation
CPT/HCPCS: 36415; 80053; 84443; 85025; 85610

== ENCOUNTER → 2023-07-17 09:28 | Outpatient (CLI) | payer MEDICARE, SELFPAY ==
--- NOTE | 2023-07-17 10:00 | DI.CT.S_ITS ---
PROCEDURE: CT LUNG LOW DOSE SCREENING INDICATIONS: 1 year follow up TECHNIQUE: Noncontrast 2.0-2.5 mm thick sections acquired from the pulmonary apices to the posterior costophrenic angles. 7 mm thick axial MIP, and 5 mm coronal and sagittal reformats were then acquired. A low radiation dose technique was utilized. COMPARISON: [facility], CT, CT CHEST WO CON, 06/28/2022, 14:18. FINDINGS: Image quality: Diagnostic, given the low radiation dose technique. Lungs and pleura: There are some small stable 1-2 mm pulmonary nodules present. I do not see evidence for new significant pulmonary mass lesion or focal lung infiltrate.. I do not see any significant hilar mediastinal adenopathy. No pleural effusion is identified. Mediastinum: Heart size is normal. No pericardial effusion. No mediastinal adenopathy by size criteria. Thoracic aorta and central pulmonary arteries are normal in size. Esophagus is normal in caliber. No hiatal hernia. There are some coronary artery and atherosclerotic calcifications present. Bones and chest wall: No suspicious bony lesions. No vertebral body compression fractures. No axillary or supraclavicular adenopathy by size criteria. Thyroid gland is again heterogeneous appearance and relatively stable from prior examination. Abdomen: Visualized upper abdomen solid organs and bowel loops appear normal in the absence of contrast. IMPRESSION: 1. Stable 1-2 mm pulmonary nodular densities without evidence for new acute findings identified within the chest. 2. Coronary artery atherosclerotic vascular calcifications. 3. Stable heterogeneous appearance of the thyroid gland. LUNG-RADS 2 benign findings. Continue annual screening at 12 month intervals. Dictated by: Héctor Edwards M.D. on 07/17/2023 at 12:04 Approved by: Héctor Edwards M.D. on 07/17/2023 at 12:44
== END ==
PROVIDERS: PCP Family Medicine; Referring Provider Family Medicine; Visit Provider Family Medicine
DX: Z12.2 Encounter for screening for malignant neoplasm of respiratory organs (principal); Z87.891 Personal history of nicotine dependence; R91.8 Other nonspecific abnormal finding of lung field; I25.10 Atherosclerotic heart disease of native coronary artery without angina pectoris
CPT/HCPCS: 71271

== ENCOUNTER → 2023-09-24 09:28 | Outpatient (CLI) | payer MEDICARE, SELFPAY ==
[2023-09-24 10:41] LABS: Add Manual Diff / Slide Review NO; Basophils Absolute Auto 0 /uL (0-100); Basophils Percent Auto 0.3 % (0-2); Eosinophils Absolute Auto 100 /uL (0-450); Eosinophils Percent Auto 1.2 % (2-4); Hematocrit 44.4 % (41-53); Lymphocytes Absolute Auto 1100 /uL (1100-4500); Lymphocytes Percent Auto 17.4 % (25-40); Mean Corpuscular HGB Conc 33.8 % (30-36); Mean Corpuscular Hemoglobin 32.5 PG (26-34); Mean Corpuscular Volume 96.2 fL (80-100); Monocytes Absolute Auto 900 /uL (0-900); Monocytes Percent Auto 13.4 % (3-14); Neutrophils Absolute Auto 4400 /uL (1500-7000); Neutrophils Percent Auto 67.7 % (50-75); Platelet Count 257 X10^3/uL (150-400); Red Blood Cell Count 4.62 X10^6/uL (4.5-5.9); Red Cell Distribution Width 13.5 % (11.6-14.8); White Blood Cell Count 6.5 X10^3/uL (4.5-11.0)
[2023-09-24 11:10] LABS: BUN Creatinine Ratio 25.6 (6-22); Blood Urea Nitrogen 20 mg/dL (9-20); Calcium 10.1 mg/dL (8.4-10.2); Carbon Dioxide 24 mmol/L (22-32); Chloride 104 mmol/L (98-107); Estimated Glomerular Filt Rate > 60 mL/min (>60); Glucose 119 mg/dL (80-110); HEMOLYSIS < 15 (0-50); Potassium 4.4 mmol/L (3.4-5.1); Sodium 135 mmol/L (137-145)
== END ==
LOC: LAB 09:31
PROVIDERS: PCP Family Medicine; Referring Provider Internal Medicine Cardiovascular Disease; Visit Provider Internal Medicine Cardiovascular Disease
DX: I48.19 Other persistent atrial fibrillation (principal)
CPT/HCPCS: 36415; 80048; 85025

== ENCOUNTER → 2024-05-07 11:44 | Outpatient (CLI) | payer MEDICARE, SELFPAY ==
[2024-05-07 13:21] LABS: Add Manual Diff / Slide Review NO; Basophils Absolute Auto 0 /uL (0-100); Basophils Percent Auto 0.3 % (0-2); Eosinophils Absolute Auto 100 /uL (0-450); Hematocrit 41.8 % (41-53); Hemoglobin 14.3 g/dL (13.5-17.5); Lymphocytes Absolute Auto 1000 /uL (1100-4500); Lymphocytes Percent Auto 12.4 % (25-40); Mean Corpuscular HGB Conc 34.3 % (30-36); Mean Corpuscular Hemoglobin 33.2 PG (26-34); Mean Corpuscular Volume 96.7 fL (80-100); Monocytes Absolute Auto 800 /uL (0-900); Monocytes Percent Auto 10.3 % (3-14); Neutrophils Absolute Auto 6000 /uL (1500-7000); Platelet Count 304 X10^3/uL (150-400); Red Blood Cell Count 4.32 X10^6/uL (4.5-5.9); Red Cell Distribution Width 13.3 % (11.6-14.8); White Blood Cell Count 7.9 X10^3/uL (4.5-11.0)
[2024-05-07 13:46] LABS: BUN Creatinine Ratio 20.4 (6-22); Blood Urea Nitrogen 19 mg/dL (9-20); Calcium 9.5 mg/dL (8.4-10.2); Carbon Dioxide 22 mmol/L (22-32); Chloride 105 mmol/L (98-107); Estimated Glomerular Filt Rate > 60 mL/min (>60); Glucose 118 mg/dL (80-110); HEMOLYSIS < 15 (0-50); Potassium 4.2 mmol/L (3.4-5.1); Sodium 137 mmol/L (137-145)
== END ==
LOC: LAB 11:45
PROVIDERS: PCP Family Medicine; Referring Provider Internal Medicine Cardiovascular Disease; Visit Provider Internal Medicine Cardiovascular Disease
DX: I48.19 Other persistent atrial fibrillation (principal)
CPT/HCPCS: 36415; 80048; 85025

== ENCOUNTER → 2024-07-17 07:07 | Outpatient (CLI) | payer MEDICARE, SELFPAY ==
[2024-07-17 08:23] LABS: Hematocrit 45.9 % (41-53); Hemoglobin 15.5 g/dL (13.5-17.5); Mean Corpuscular HGB Conc 33.7 % (30-36); Mean Corpuscular Hemoglobin 32.8 PG (26-34); Mean Corpuscular Volume 97.2 fL (80-100); Platelet Count 300 X10^3/uL (150-400); Red Blood Cell Count 4.72 X10^6/uL (4.5-5.9); Red Cell Distribution Width 13.5 % (11.6-14.8); White Blood Cell Count 6.3 X10^3/uL (4.5-11.0)
[2024-07-17 08:49] LABS: BUN Creatinine Ratio 23.8 (6-22); Blood Urea Nitrogen 25 mg/dL (9-20); Calcium 9.8 mg/dL (8.4-10.2); Carbon Dioxide 23 mmol/L (22-32); Chloride 107 mmol/L (98-107); Cholesterol 205 mg/dL (140-199); Estimated Glomerular Filt Rate > 60 mL/min (>60); Glucose 118 mg/dL (80-110); HDL Cholesterol 50 mg/dL (40-60); HEMOLYSIS < 15 (0-50); LDL Cholesterol Calculated 136 mg/dL (<100); Potassium 4.4 mmol/L (3.4-5.1); Sodium 137 mmol/L (137-145); Triglycerides 94 mg/dL (35-150)
== END ==
PROVIDERS: PCP Family Medicine; Referring Provider Internal Medicine Cardiovascular Disease; Visit Provider Internal Medicine Cardiovascular Disease
DX: I10 Essential (primary) hypertension (principal); Z79.01 Long term (current) use of anticoagulants
CPT/HCPCS: 36415; 80048; 80061; 85027

== ENCOUNTER → 2024-07-22 10:12 | Outpatient (CLI) | payer MEDICARE, SELFPAY ==
--- NOTE | 2024-07-22 10:14 | DI.CT.S_ITS ---
PROCEDURE: CT LUNG LOW DOSE SCREENING INDICATIONS: 1 yr follow up based on last screening TECHNIQUE: Noncontrast 2.0-2.5 mm thick sections acquired from the pulmonary apices to the posterior costophrenic angles. 7 mm thick axial MIP, and 5 mm coronal and sagittal reformats were then acquired. For radiation dose reduction, the following was used: automated exposure control, adjustment of mA and/or kV according to patient size. COMPARISON: [facility], CT, CT LUNG LOW DOSE SCREENING, 07/17/2023, 9:45. FINDINGS: Image quality: Diagnostic Lungs: Mild paraseptal emphysema at the left lung base. No pleural effusion or pneumothorax. No suspicious pulmonary nodule. Scattered sub 4 mm pulmonary nodules. Mediastinal/soft tissue findings: Multiple bilateral thyroid nodules, measuring up to 1.4 cm in the right thyroid. Minimal calcification of the thoracic aorta. Mild calcification of the aortic annulus. No thoracic aortic aneurysm. Heart is normal in size. No pericardial effusion. Moderate LAD coronary artery calcification. Additional mild RCA and left circumflex coronary artery calcification. No mediastinal, hilar, or axillary lymphadenopathy. Upper abdomen: Unremarkable Bones: No suspicious lytic or blastic lesion. Slightly exaggerated kyphosis of the upper thoracic spine. IMPRESSION: No suspicious pulmonary nodules. LUNG-RADS 2; continued annual screening, if eligible. Clinically Significant Non-pulmonary Findings: None. Dictated by: Jaylin Dent M.D. on 07/22/2024 at 16:23 Approved by: Jaylin Dent M.D. on 07/22/2024 at 16:30
== END ==
LOC: CT 10:13
PROVIDERS: PCP Family Medicine; Referring Provider Family Medicine; Visit Provider Family Medicine
DX: Z87.891 Personal history of nicotine dependence (principal); E04.2 Nontoxic multinodular goiter; R91.8 Other nonspecific abnormal finding of lung field; J43.8 Other emphysema; I70.0 Atherosclerosis of aorta; I25.10 Atherosclerotic heart disease of native coronary artery without angina pectoris
CPT/HCPCS: 71271

== ENCOUNTER → 2024-11-03 11:19 | Outpatient (CLI) | payer MEDICARE, SELFPAY ==
[2024-11-03 12:17] LABS: Alanine Aminotransferase 52 IU/L (<50); Albumin 4.4 g/dL (3.5-5.0); Albumin Globulin Ratio 2.2 (1.0-2.8); Alkaline Phosphatase 104 U/L (38-126); Aspartate Aminotransferase 47 IU/L (17-59); Bilirubin Total 0.6 mg/dL (0.2-1.3); Bilirubin Unconjugated 0.4 mg/dL (0.0-1.1); HEMOLYSIS < 15 (0-50); Total Protein 6.4 g/dL (6.3-8.2)
== END ==
PROVIDERS: PCP Family Medicine; Referring Provider Internal Medicine Cardiovascular Disease; Visit Provider Internal Medicine Cardiovascular Disease
DX: I48.0 Paroxysmal atrial fibrillation (principal)
CPT/HCPCS: 36415; 80076

== ENCOUNTER → 2025-01-13 07:11 | Outpatient (CLI) | payer MEDICARE, SELFPAY ==
[2025-01-13 07:53] LABS: Hematocrit 45.4 % (41-53); Hemoglobin 15.1 g/dL (13.5-17.5); Mean Corpuscular HGB Conc 33.3 % (30-36); Mean Corpuscular Hemoglobin 32.3 PG (26-34); Platelet Count 258 X10^3/uL (150-400); Red Blood Cell Count 4.68 X10^6/uL (4.5-5.9); Red Cell Distribution Width 13.2 % (11.6-14.8); White Blood Cell Count 5.2 X10^3/uL (4.5-11.0)
[2025-01-13 08:05] LABS: Alanine Aminotransferase 26 IU/L (<50); Albumin 4.4 g/dL (3.5-5.0); Albumin Globulin Ratio 2.1 (1.0-2.8); Alkaline Phosphatase 84 U/L (38-126); Aspartate Aminotransferase 33 IU/L (17-59); BUN Creatinine Ratio 26.8 (6-22); Bilirubin Total 0.8 mg/dL (0.2-1.3); Blood Urea Nitrogen 22 mg/dL (9-20); Calcium 9.5 mg/dL (8.4-10.2); Carbon Dioxide 24 mmol/L (22-32); Chloride 108 mmol/L (98-107); Cholesterol 136 mg/dL (140-199); Estimated Glomerular Filt Rate > 60 mL/min (>60); Globulin 2.1 g/dL (1.7-4.1); Glucose 128 mg/dL (70-99); HDL Cholesterol 49 mg/dL (40-60); HEMOLYSIS < 15 (0-50); LDL Cholesterol Calculated 72 mg/dL (<100); Potassium 4.3 mmol/L (3.4-5.1); Sodium 139 mmol/L (137-145); Total Protein 6.5 g/dL (6.3-8.2); Triglycerides 73 mg/dL (35-150)
== END ==
PROVIDERS: PCP Family Medicine; Referring Provider Internal Medicine Cardiovascular Disease; Visit Provider Internal Medicine Cardiovascular Disease
DX: E78.5 Hyperlipidemia, unspecified (principal); I10 Essential (primary) hypertension; I48.0 Paroxysmal atrial fibrillation; Z79.01 Long term (current) use of anticoagulants
CPT/HCPCS: 36415; 80053; 80061; 84443; 85027

== ENCOUNTER → 2025-03-10 10:16 | Outpatient (CLI) | payer MEDICARE, SELFPAY ==
[2025-03-10 11:04] LABS: Blood Urea Nitrogen 22 mg/dL (9-20); Calcium 9.6 mg/dL (8.4-10.2); Carbon Dioxide 21 mmol/L (22-32); Chloride 105 mmol/L (98-107); Estimated Glomerular Filt Rate > 60 mL/min (>60); Glucose 124 mg/dL (70-99); HEMOLYSIS < 15 (0-50); Potassium 4.5 mmol/L (3.4-5.1); Sodium 136 mmol/L (137-145)
== END ==
PROVIDERS: PCP Family Medicine; Referring Provider Family Medicine; Visit Provider Internal Medicine Cardiovascular Disease
DX: I48.19 Other persistent atrial fibrillation (principal); Z01.812 Encounter for preprocedural laboratory examination
CPT/HCPCS: 36415; 80048

== ENCOUNTER → 2025-07-13 12:28 | Outpatient (CLI) | payer MEDICARE, SELFPAY ==
--- NOTE | 2025-07-13 12:29 | DI.ECHO.S_ITS ---
[facility]---------+ [facility] : : [address] : : [place] : : [id number] : : Phone: [phone] Echocardiogram Report + + :Name: GILBERTO SOTO Study Date: 07/13/2025 Height: 75 in : :[facility] ReadingLocation: Weight: 190 lb : : Gender: Male BSA: 2.1 m2 : :: 1945 Age: 79 yrs BP: 152/76 mmHg: :Reason For Study: CARDIOMYOPATHY : :Ordering Physician: RUPESH, : :FAIZAN Performed By: Tez Meeks : :Referring: FAIZAN BEAUCHAMP : + + Interpretation Summary 1) Moderately enlarged left ventricle with low normal systolic function (EF 50-55%). 2) Mildly enlarged right ventricle with normal function. 3) The left atrium is severely dilated. 4) There is mild to moderate mitral regurgitation. 5) Compared to the echo done 07/04/2023, no significant change. Procedure: A two-dimensional transthoracic echocardiogram with color flow and Doppler was performed. The study quality was technically good. Comparison is made with the echocardiogram of 07/04/2023. The patient was in a bradycardic rhythm during the exam. Left Ventricle: Left ventricular wall thickness is mildly increased. The left ventricle is mild-moderately dilated. There is no ventricular septal defect visualized. The ejection fraction is estimated to be 50-55%. There are no focal wall motion abnormalities. Diastolic parameters suggest a relaxation abnormality of the left ventricle, consistent with probable normal filling pressures. Right Ventricle: The right ventricle is mildly dilated. The right ventricular systolic function is normal. Atria: The left atrium is severely dilated. The right atrium is moderately dilated. Mitral Valve: The mitral valve leaflets appear mildly thickened. There is mild to moderate mitral regurgitation. Aortic Valve: The aortic valve is trileaflet. The aortic valve opens well. No aortic regurgitation is present. Tricuspid Valve: The tricuspid valve leaflets are thin and pliable. There is mild tricuspid regurgitation. The right ventricular systolic pressure is estimated to be at least 47 mmHg based on an estimated right atrial pressure of 3 mm Hg. Pulmonic Valve: The pulmonic valve is not well seen, but is grossly normal. There is no pulmonic valvular regurgitation. Great Vessels: The aortic root is mildly dilated. The dimensions of the ascending aorta are normal. The pulmonary artery is normal size. The IVC is of normal diameter and collapses greater than 50% with a sniff. This suggests a low right atrial pressure of 3 mm Hg. Pericardium/ Pleura There is no pericardial effusion. There is no pleural effusion. MMode/2D Measurements & Calculations LVIDd: 6.6 cm LVOT diam: 2.4 cm LVIDs: 4.3 cm Ao root diam: 4.0 cm FS: 35.2 % asc Aorta Diam: 3.6 cm EPSS: 1.1 cm Ao Arch Diam (Prox Trans): 2.3 cm IVSd: 0.91 cm LVPWd: 1.1 cm LV connor. diameter/BSA (cm/m^2): 3.1 LV sys. diameter/BSA (cm/m^2): 2.0 LA A2 area: 33.4 cm2 RA long axis: 6.0 cm LA A4 area: 37.5 cm2 RA area: 26.8 cm2 LA length (vol): 7.0 cm RA vol: 102.0 ml LA vol: 153.1 ml RA : 47.5 ml/m2 LA vol index: 71.3 ml/m2 IVC diam: 1.9 cm RVD1 (basal): 4.3 cm RVD2 (mid): 3.4 cm TAPSE: 2.0 cm Doppler Measurements & Calculations Ao V2 max: 167.9 cm/sec LVOT Max Curry: 126.6 cm/sec Ao V2 mean: 112.8 cm/sec LV V1 max P.4 mmHg Ao max P.3 mmHg LV V1 VTI: 32.7 cm Ao mean P.9 mmHg KEL(I,D): 3.5 cm2 Ao V2 VTI: 42.5 cm KEL(V,D): 3.4 cm2 sev ratio: 0.77 KEL indexed to BSA (cm^2/m^2): 1.6 MV E max curry: 57.1 cm/sec TR max curry: 329.7 cm/sec MV A max curry: 65.3 cm/sec TR max P.5 mmHg MV E/A: 0.87 PA V2 max: 142.9 cm/sec Med Peak E' Curry: 4.1 cm/sec PA V2 mean: 88.3 cm/sec E/E' med: 14.1 PA mean P.7 mmHg Lat Peak E' Curry: 4.8 cm/sec PA pr(Accel): 55.0 mmHg E/E' lat: 11.9 E/e' average: 13.0 MV dec time: 0.51 sec SV(LVOT): 148.5 ml Reading Physician:02:18 PM
== END ==
LOC: ECHO 12:28
PROVIDERS: PCP Family Medicine; Referring Provider Internal Medicine Cardiovascular Disease; Visit Provider Internal Medicine Cardiovascular Disease
DX: I08.1 Rheumatic disorders of both mitral and tricuspid valves (principal); I77.810 Thoracic aortic ectasia; I42.9 Cardiomyopathy, unspecified
CPT/HCPCS: 93306

== ENCOUNTER → 2025-07-14 11:31 | Outpatient (CLI) | payer MEDICARE, SELFPAY ==
[2025-07-14 12:16] LABS: Hematocrit 42.7 % (41-53); Hemoglobin 14.7 g/dL (13.5-17.5); Mean Corpuscular HGB Conc 34.3 % (30-36); Mean Corpuscular Hemoglobin 32.8 PG (26-34); Mean Corpuscular Volume 95.5 fL (80-100); Platelet Count 307 X10^3/uL (150-400)
[2025-07-14 12:46] LABS: Blood Urea Nitrogen 21 mg/dL (9-20); Calcium 9.9 mg/dL (8.4-10.2); Carbon Dioxide 26 mmol/L (22-32); Chloride 100 mmol/L (98-107); Estimated Glomerular Filt Rate > 60 mL/min (>60); Glucose 119 mg/dL (70-99); HEMOLYSIS < 15 (0-50); Potassium 4.4 mmol/L (3.4-5.1); Sodium 137 mmol/L (137-145)
== END ==
PROVIDERS: PCP Family Medicine; Referring Provider Internal Medicine Cardiovascular Disease; Visit Provider Internal Medicine Cardiovascular Disease
DX: I48.19 Other persistent atrial fibrillation (principal); Z79.01 Long term (current) use of anticoagulants
CPT/HCPCS: 36415; 80048; 85027

== ENCOUNTER → 2025-08-24 11:16 | Outpatient (CLI) | payer MEDICARE, SELFPAY ==
--- NOTE | 2025-08-24 11:18 | DI.RAD.S_ITS ---
PROCEDURE: XR LUMBAR SPINE MIN 4V INDICATIONS: back pain TECHNIQUE: 5 views of the lumbar spine acquired, including flexion and extension views. COMPARISON: None. FINDINGS: Bones: 5 nonrib-bearing vertebrae are present. No acute vertebral body compression fractures. No suspicious bony lesions. Mild dextroscoliosis of the lumbar spine is present. No listhesis is seen. No significant change with flexion or extension. Multilevel degenerative disc disease including [id number] L4-5 and L5-S1 disc disc narrowing. Multilevel facet arthropathy is most pronounced at L4-5 and L5-S1. Soft tissues: Overlying bowel gas pattern is normal. Atheromatous calcified plaques noted in the abdominal aorta. Otherwise, no suspicious soft tissue calcifications. Flexion/extension: See above. IMPRESSION: No acute fracture. Multilevel degenerative disc and facet arthropathy as described above. Dictated by: Lynnette Boothe M.D. on 08/24/2025 at 17:04 Approved by: Lynnette Boothe M.D. on 08/24/2025 at 17:06
== END ==
PROVIDERS: PCP Family Medicine; Referring Provider Physical Medicine & Rehabilitation; Visit Provider Physical Medicine & Rehabilitation
DX: M47.816 Spondylosis without myelopathy or radiculopathy, lumbar region (principal); M47.817 Spondylosis without myelopathy or radiculopathy, lumbosacral region; M51.369 Other intervertebral disc degeneration, lumbar region without mention of lumbar back pain or lower extremity pain; M51.370 Other intervertebral disc degeneration, lumbosacral region with discogenic back pain only; M54.9 Dorsalgia, unspecified
CPT/HCPCS: 72110